=== PATIENT | female | born 1955 | race Caucasian/White ===

== ENCOUNTER 2016-07-05 12:01 | Observation (INO) | payer MEDICAID ==
[~2016-07-05] VITALS: Ht 157.5 cm; Wt 71.3 kg
[2016-07-05 12:05] VITALS: BP 144/96
[2016-07-05 12:18] LABS: HEMOGLOBIN 11.7 g/dL (12.2-16.2); LYMPH # 2.1 K/mm3 (0.7-4.5); LYMPH % 27.2 % (10-50.0)
[2016-07-05 12:44] LABS: BUN 13 mg/dL (7-18)
[2016-07-05 12:53] LABS: GFR (ESTIMATED) 64 ML/MIN (59-)
--- NOTE | 2016-07-05 13:31 | RADIOLOGY REPORT PS360 ---
CHEST(2 VIEWS-NOT PORTABLE) HISTORY: Chest pain CP WEEK LONG ORDERING PHYSICIAN: Daryl Orellana MD PATIENT AGE: 61 years COMPARISON: None available FINDINGS: Normal heart size. There is coarse calcification of the mitral valve annulus. No CHF.. The lungs are clear without infiltrates, suspicious nodules, or pleural effusions. Degenerative change thoracic spine. . 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 No acute finding. 2. Mitral valve annular calcification
--- NOTE | 2016-07-05 14:41 | CONSULT NOTE ---
Standard Demographics Patient Demo Date of Consultation: 07/05/16 Referring Provider: Lois Bob MD Reason for Consultation: Chest pain, History of CHF PRIMARY DIAGNOSIS: chest pain Problem list Problem list: 1. History of congestive heart failure 2. History of bone cancer of leg diagnosed approximately 2011 with history of chemotherapy treatment. This was performed in [place]. Possible multiple myeloma. 3. History of DVT approximately March or April 2016 treated with about 3 months of Xarelto. 4. History of anemia, recurrent 5. Tobacco use, since age 14. 6. Hypertension, treated for greater than 40 years 7. Diabetes mellitus, treated for greater than 40 years History of present illness: History of present illness: 61-year-old white female presented to her family doctor's office today for a 3 day history of upper abdominal and lower chest discomfort. Patient has nausea and shortness of breath associated with it and she denies any recent increase in lower extremity edema and denies any orthopnea. Due to the symptoms and patient being new to the office she was sent to the emergency department for further evaluation. Primary care's office contacted cardiology to see the patient in the ER for further evaluation. Patient does have a history of recurrent congestive heart failure previously treated in [place]. She relates increasing exertional chest tightness and decreased exercise tolerance over the last couple of months. She denies cardiac cath in the past but states recent stress test 03/2016 in [place], [place] was ok. She does not believe she's had an echocardiogram. Electrocardiogram in the emergency department is sinus rhythm and unremarkable. Initial troponin is normal. She reports recent of RIGHT lower extremity DVT treated with Xarelto for 3 months. She has a history of bone cancer of leg diagnosed about 4 years ago. Possible multiple myeloma. Past Medical History: General: Hypertension Yes Diabetes Yes Cancer Yes Additional hx BONE CANCER THAT HASN'T BEEN RECHECKED Past Surgical HX: Previous Surgery?N Allergies Coded Allergies: ondansetron (From ZOFRAN ( HYDROCHLORIDE)) (Mild, 07/05/16) Current Medications: Current Medications Morphine Sulfate 4 MG ONCE ONE IV (DC) Ondansetron HCl 4 MG ONCE ONE IV (DCr) Morphine Sulfate 0 .STK-MED ONE .ROUTE (DC) Sodium Chloride 10 ML PRN PRN IV Immunization HX Ped.Immunizations UTD Yes DT/Tetanus 1-4 Years Family history Family HX Family Hx Insignificant No Social Hx: Smoking HX Tobacco No Type Cigarettes Are you/the child exposed to second-hand smoke: No Alcohol Alcohol: No Hx of Drug Use Drug Use? No Review of systems: Constitutional see HPI, weakness. Respiratory SOB with excertion. Cardiovascular see HPI, chest pain Gastrointestinal/Abdominal see HPI, abdominal pain, nausea Genitourinary No: no symptoms reported. Musculoskeletal muscle pain. Neurological No: no symptoms reported. Exam: Admission Vital Signs: 1ST Vital Signs Result Date Time Pulse Ox 99 07/05 1205 B/P 144/96 07/05 1205 Temp 98.6 07/05 120 Pulse 65 07/05 1205 Resp 18 07/05 120 Last Vital Signs: Vital Signs Result Date Time Resp 07/05 1408 Pulse Ox 99 07/05 1205 B/P 144/96 07/05 1205 Temp 98.6 07/05 1205 Pulse 65 07/05 1205 Exam General appearance: alert, awake, no acute distress Neck: no carotid bruit, JVD Cardiovascular: regular rate & rhythm, extra beats Respiratory: clear to auscultation, good air movement ABD: soft Extremities: moves all, patient has 2-3+ pitting edema of lower extremities bilaterally. She has a healing sore on the LEFT lower coronado area without drainage. Neuro: alert, intact, speech clear, oriented and person place and time. Answers questions appropriately. She is a poor historian. Laboratory data: Laboratory Tests 07/05/16 120: B-Natriuretic Peptide 437 H 07/05/161204: Amylase 27, Lipase 40 L 07/05/16 120: Sodium 139, Potassium 3.5, Chloride 103, Carbon Dioxide 29, BUN 13, Creatinine 0.9, Estimated Creat Clear 77, Estimated GFR (MDRD) 64, Glucose 84, Calcium 7.9 L, Total Bilirubin 0.4, AST 21, ALT 13, Alkaline Phosphatase 153 H, Creatine Kinase 57, CK-MB (CK-2) Rel Index 2.3, CK and CKMB Interp 1.3, Troponin I < 0.02 , Total Protein 6.8, Albumin 2.0 L, Globulin 4.8 H, Albumin/Globulin Ratio 0.4 L, D-Dimer 1080 *H, WBC 7.6, RBC 3.50 L, Hgb 11.7 L, Hct 36.7 L, MCV 104.9 H, RDW 14.5, Plt Count 274, MPV 7.0 L, Gran % 64.7, Gran # 4.9, Lymphocytes % 27.2, Monocytes % 3.4, Eosinophils % 4.0, Basophils % 0.7, Lymphocytes # 2.1, Monocytes # 0.3, Eosinophils # 0.3, Basophils # 0.1, PUBS MCHC 31.8, MCH 33.4 H Plan: Assessment: 1. Chest and abdominal pain with persistent nausea for 3 days. Electrocardiogram unremarkable with normal troponin. Continue serial cardiac enzymes to rule out myocardial infarction but due to exertional angina symptoms in assisted diabetic that smokes, will proceed with cardiac cath in the morning. Risks and benefits discussed with patient and she agrees to proceed. 2. History of recent DVT status post 3 months of treatment with Xarelto. 3. Elevated d-dimer with shortness of breath. CT of the chest has been ordered to rule out PE. 4. Elevated BNP without CHF on CXR or on exam but with history of recurrent congestive heart failure. Unsure what medications patient is taking but will start diuretics due to LE edema. 5. Long-term diabetic 6. Long-term hypertensive, will obtain echocardiogram to evaluate LV function. 7. Mild anemia 8. History of bone cancer Recommendations: 1. IV Lasix 40 mg daily. 2. Obtain echocardiogram. 3. Left heart cath tomorrow. 4. ASA 81 mg daily. 5. Start low dose beta parul at 1551
--- NOTE | 2016-07-05 15:09 | Emergency Room Report ---
History of Present Illness Time Seen by [id number] Presenting Problem in Triage Pt arrived:Walked Presenting Problem:PATIENT STATES SHE IS SOA AND HAS BEEN HAVING NON-RADIATING CP FOR A WEEK HASN'T SEEN A DR SINCE FEBRUARY AND STATES THAT WAS WHEN SHE FINISHED BONE CANCER TREATMENT AND DECIDED SHE WASN'T GOING BACK. 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 N Clinical Suspician of Infection? N Mental Status: 1 - Regular (Normal Baseline) Sepsis Risk:Low Sepsis Risk Have you (or family members/close friends) recently traveled outside the [facility]? N If Yes, where/when: Have you had exposure to infectious disease within the past month? TB? Other? Specify: Source patient, RN notes reviewed, family, RN/MD Exam Limitations no limitations Comment This is 61-year-old female patient presented to the emergency room with chest pain, onset approximately one week ago gradually getting worse, today associated with exertion, relieved by rest. Patient is also short of breath, diaphoretic, stating that her chest pain is a to the LEFT shoulder, and down the LEFT arm. Apparently patient was diagnosed and treated for bone cancer of the LEFT lower extremity in [facility] 4 years ago. Patient never finished completely the treatment because she relocated to [place], where she did not continue her medical treatment either. ALLERGIES Coded Allergies: ondansetron (From ZOFRAN ( HYDROCHLORIDE)) (Mild, 07/05/16) Home Medications Reported Medications No Home Medications (NO HOME MEDICATIONS) 1 EACH XX ONCE History Medical History General Hypertension? Yes Diabetes? Yes Cancer? Yes More? Yes Additional hx: BONE CANCER THAT HASN'T BEEN RECHECKED Immunization Hx Ped.Immunizations UTD Yes DT/Tetanus 1-4 Years Ago Surgical Hx Previous Surgery?N Social History Smoking Hx Smoker: Current Every Day Smoker Tobacco: No Type Cigarettes Are you/the child exposed to second-hand smoke: No Alcohol Alcohol: No Review of Systems All Other Systems Reviewed and Negative Respiratory shortness of breath Cardiovascular chest pain, palpitations Physical Exam Vital Signs Vital Signs Date Time Temp Pulse Resp B/P Pulse O2 O2 Flow FiO2 Ox Delivery Rate 07/05 1642 65 18 147/75 98 07/05 1549 2 07/05 1549 2 07/05 1549 2 07/05 1506 67 18 152/89 99 07/05 1408 18 07/05 1205 98.6 65 18 144/96 99 General Appearance normal appearance, WD/WN, mild distress Neck normal inspection, non-tender, supple, full range of motion Respiratory Status Yes: trachea midline, chest symmetrical, non tender chest. No: respiratory distress. Lung Sounds bilateral: normal breath sounds, lungs clear. Cardiovascular normal exam, regular rate/rhythm, no peripheral edema, no gallop, no JVD, no murmur, no rub, normal peripheral pulses Peripheral Pulses Pulses normal Yes Gastrointestinal normal bowel sounds, normal exam, non tender, soft, no organomegaly Extremities non-tender, normal range of motion, normal inspection Neurologic alert, continuity clerk II-XII nml as tested, normal exam, oriented x 3 Mental status normal mood/affect Skin intact, normal color, warm/dry Medical Decision Making LABS/Meds/Orders Pt receiving controlled substance in ED? No Comment 14:15-discussed with Dr. Jason Grey's nurse practitioner, taking calls for him till 5pm, advised of patient's history, presentation, findings, ED course. Matilda accepted patient on behalf of Dr. Gomez, who she'll notify to see patient in the hospital. Also advised Matilda that I will consult cardiology on the case. At time of her admission patient was in stable medical condition, minimally symptomatic. 1430-case discussed with Ruddy Farmer, c/o Dr Degroot, who recommended patient to be admitted and have additional inpatient workup Results/Orders Laboratory Tests 07/05/16 1642: Creatine Kinase 48, CK-MB (CK-2) Rel Index 3.1, CK and CKMB Interp 1.5, Troponin I 0.02 07/05/16 1205: B-Natriuretic Peptide 437 H 07/05/16 1205: Amylase 27, Lipase 40 L 07/05/16 1205: Sodium 139, Potassium 3.5, Chloride 103, Carbon Dioxide 29, BUN 13, Creatinine 0.9, Estimated Creat Clear 77, Estimated GFR (MDRD) 64, Glucose 84, Calcium 7.9 L, Total Bilirubin 0.4, AST 21, ALT 13, Alkaline Phosphatase 153 H, Creatine Kinase 57, CK-MB (CK-2) Rel Index 2.3, CK and CKMB Interp 1.3, Troponin I < 0.02 , Total Protein 6.8, Albumin 2.0 L, Globulin 4.8 H, Albumin/Globulin Ratio 0.4 L, D-Dimer 1080 *H, WBC 7.6, RBC 3.50 L, Hgb 11.7 L, Hct 36.7 L, MCV 104.9 H, RDW 14.5, Plt Count 274, MPV 7.0 L, Gran % 64.7, Gran # 4.9, Lymphocytes % 27.2, Monocytes % 3.4, Eosinophils % 4.0, Basophils % 0.7, Lymphocytes # 2.1, Monocytes # 0.3, Eosinophils # 0.3, Basophils # 0.1, PUBS MCHC 31.8, MCH 33.4 H Current Medication Orders Sig/Colton Start time Last Medication Dose Route Stop Time Status Admin Fentanyl Citrate 25 MCG PRN PRN 07/06 1600 AC IV 07/06 2300 Fentanyl Citrate 50 MCG PRN PRN 07/06 1600 AC IV 07/06 2300 Flumazenil 0.2 MG PRN PRN 07/06 1600 AC IV 07/06 2300 Heparin Sodium/ 3,000 UNITS PRN PRN 07/06 1600 AC Sodium Chloride IV 07/07 1547 Midazolam HCl 1 MG PRN PRN 07/06 1600 AC IV 07/06 2300 Midazolam HCl 1 MG PRN PRN 07/06 1600 AC IV 07/06 2300 Naloxone HCl 0.4 MG [id number] PRN 07/06 1600 AC IV 07/06 2300 Nitroglycerin 800 MCG PRN PRN 07/06 1600 AC IV 07/07 1547 Verapamil HCl 5 MG PRN PRN 07/06 1600 AC IV 07/07 1547 Lidocaine HCl 20 ML ONCE ONE 07/06 0800 AC IJ 07/06 0801 Metoprolol Tartrate 25 MG BID 07/05 2100 AC 07/05 PO 2051 Multi-Ingredient GI 0 .STK-MED ONE 07/05 1631 DC Drug PO Influenza Virus 0.5 ML PRN PRN 07/05 1530 AC Vaccine Quadrival IM Nicotine 21 MG DAILYP PRN 07/05 1530 AC 07/05 TD 2213 Multi-Ingredient GI 60 ML ONCE ONE 07/05 1515 DC Drug PO 07/05 1516 Iopamidol 75 ML ONCE ONE 07/05 1500 DC 07/05 IV 07/05 1501 1500 Sodium Chloride 10 ML PRN PRN 07/05 1500 DC 07/05 IV 07/05 1629 1500 Sodium Chloride 20 ML ONCE ONE 07/05 1500 DC 07/05 IV 07/05 1501 1500 Sodium Chloride 20 ML ONCE ONE 07/05 1500 DC 07/05 IV 07/05 1501 1500 Furosemide 40 MG ONCE ONE 07/05 1445 DC IV 07/05 1446 Lisinopril 20 MG DAILY 07/05 1438 AC PO Morphine Sulfate 4 MG ONCE ONE 07/05 1415 DC 07/05 IV 07/05 1416 1408 Ondansetron HCl 4 MG ONCE ONE 07/05 1415 DCr IV 07/05 1416 Morphine Sulfate 0 .STK-MED ONE 07/05 1403 DC .ROUTE Sodium Chloride 10 ML PRN PRN 07/05 1215 AC IV 07/06 1203 Orders Procedure Date/time Status Schedule Procedure 07/06 UNK Active PREPARE CONSENT 07/06 UNK Active [id number] FAT/LO CHO/NOHEMI 07/05 D Active CARDIAC ENZYMES 07/05 2200 Complete CARDIAC ENZYMES 07/05 1600 Complete RT Pulse Oximetry, Provide 07/05 1548 Active RT O2 Installation/Change Set 07/05 1548 Active RT O2 Therapy, Monitor/Maintai 07/05 1548 Active Decision to admit 07/[address] CHEST W/PE PROTOCOL REQ 07/05 1350 Complete D-DIMER 07/05 1254 Complete BRAIN NATRIURETIC PEPTIDE 07/05 1254 Complete LIPASE 07/05 1251 Complete AMYLASE 07/05 1251 Complete ELECTROCARDIOGRAM REQUEST 07/05 1204 Active IV SALINE LOCK 07/05 1204 Active CBC WITH AUTO DIFF 07/05 1204 Complete CARDIAC ENZYMES 07/05 1204 Complete CHEM 12 PROFILE 07/05 1204 Complete ADMIT PATIENT 07/05 UNK Active 12 LEAD EKG-BESSON (INITIAL) 07/05 UNK Active PULSE OXIMETRY REQUEST 07/05 UNK Active OXYGEN REQUEST 07/05 UNK Active VITAL SIGNS 07/05 UNK Active RED HAT LINUX ENGINEER 07/05 UNK Active POM NURSE RICK HOSE ORDER 07/05 UNK Active CODE STATUS 07/05 UNK Active PATIENT ACTIVITY ORDER 07/05 UNK Active Weight, Monitor as ordered/ind 07/05 UNK Complete PHYSICIANS CONSULT 07/05 UNK Active SPECIALTY CLINIC PHYS CONSULT 07/05 [facility] Active CM/EKG CM/piggyback clerk Rhythm Normal Sinus Rhythm Rate 85 Ectopy No Comments No acute ischemic changes EKG rate, NSR, rhythm, no evid. of ischemic chgs, no ectopy, normal QRS, normal DE, no EKG for comparison, non-spec. ST/Twave chgs, ST elevation, ST depression, LBBB, RBBB, ectopy, abnormal Q waves XRAY/CT/US XRAY/CT/US 1 XRAY chest XR interpretation by discussed w/radiologist Xray Results no infiltrates, normal heart size, normal lung inflation sheila XRAY/CT/US [address] interpretation by discussed w/radiologist CT Results see the radiologist's report Departure Departure Time of Disposition 1509 Disposition Still a Patient Clinical Impression Primary Impression: Chest pain Qualifiers: Chest pain type: unspecified Qualified Code: R07.9 - Chest pain, unspecified Condition STABLE ED Critical Care Critical Care No at 0703
--- NOTE | 2016-07-05 15:09 | Emergency Room Report ---
History of Present Illness Time Seen by [id number] Presenting Problem in Triage Pt arrived:Walked Presenting Problem:PATIENT STATES SHE IS SOA AND HAS BEEN HAVING NON-RADIATING CP FOR A WEEK HASN'T SEEN A DR SINCE FEBRUARY AND STATES THAT WAS WHEN SHE FINISHED BONE CANCER TREATMENT AND DECIDED SHE WASN'T GOING BACK. 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 N Clinical Suspician of Infection? N Mental Status: 1 - Regular (Normal Baseline) Sepsis Risk:Low Sepsis Risk Have you (or family members/close friends) recently traveled outside the [facility]? N If Yes, where/when: Have you had exposure to infectious disease within the past month? TB? Other? Specify: Source patient, RN notes reviewed, family, RN/MD Exam Limitations no limitations Comment This is 61-year-old female patient presented to the emergency room with chest pain, onset approximately one week ago gradually getting worse, today associated with exertion, relieved by rest. Patient is also short of breath, diaphoretic, stating that her chest pain is a to the LEFT shoulder, and down the LEFT arm. Apparently patient was diagnosed and treated for bone cancer of the LEFT lower extremity in [facility] 4 years ago. Patient never finished completely the treatment because she relocated to [place], where she did not continue her medical treatment either. ALLERGIES Coded Allergies: ondansetron (From ZOFRAN ( HYDROCHLORIDE)) (Mild, 07/05/16) Home Medications Reported Medications No Home Medications (NO HOME MEDICATIONS) 1 EACH XX ONCE History Medical History General Hypertension? Yes Diabetes? Yes Cancer? Yes More? Yes Additional hx: BONE CANCER THAT HASN'T BEEN RECHECKED Immunization Hx Ped.Immunizations UTD Yes DT/Tetanus 1-4 Years Ago Surgical Hx Previous Surgery?N Social History Smoking Hx Smoker: Current Every Day Smoker Tobacco: No Type Cigarettes Are you/the child exposed to second-hand smoke: No Alcohol Alcohol: No Review of Systems All Other Systems Reviewed and Negative Respiratory shortness of breath Cardiovascular chest pain, palpitations Physical Exam Vital Signs Vital Signs Date Time Temp Pulse Resp B/P Pulse O2 O2 Flow FiO2 Ox Delivery Rate 07/05 1642 65 18 147/75 98 07/05 1549 2 07/05 1549 2 07/05 1549 2 07/05 1506 67 18 152/89 99 07/05 1408 18 07/05 1205 98.6 65 18 144/96 99 General Appearance normal appearance, WD/WN, mild distress Neck normal inspection, non-tender, supple, full range of motion Respiratory Status Yes: trachea midline, chest symmetrical, non tender chest. No: respiratory distress. Lung Sounds bilateral: normal breath sounds, lungs clear. 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 No Comment 14:15-discussed with Dr. Jason Grey's nurse practitioner, taking calls for him till 5pm, advised of patient's history, presentation, findings, ED course. Matilda accepted patient on behalf of Dr. Gomez, who she'll notify to see patient in the hospital. Also advised Matilda that I will consult cardiology on the case. At time of her admission patient was in stable medical condition, minimally symptomatic. 1430-case discussed with Ruddy Farmer, c/o Dr Degroot, who recommended patient to be admitted and have additional inpatient workup Results/Orders Laboratory Tests 07/05/16 1642: Creatine Kinase 48, CK-MB (CK-2) Rel Index 3.1, CK and CKMB Interp 1.5, Troponin I 0.02 07/05/16 1205: B-Natriuretic Peptide 437 H 07/05/16 1205: Amylase 27, Lipase 40 L 07/05/16 1205: Sodium 139, Potassium 3.5, Chloride 103, Carbon Dioxide 29, BUN 13, Creatinine 0.9, Estimated Creat Clear 77, Estimated GFR (MDRD) 64, Glucose 84, Calcium 7.9 L, Total Bilirubin 0.4, AST 21, ALT 13, Alkaline Phosphatase 153 H, Creatine Kinase 57, CK-MB (CK-2) Rel Index 2.3, CK and CKMB Interp 1.3, Troponin I < 0.02 , Total Protein 6.8, Albumin 2.0 L, Globulin 4.8 H, Albumin/Globulin Ratio 0.4 L, D-Dimer 1080 *H, WBC 7.6, RBC 3.50 L, Hgb 11.7 L, Hct 36.7 L, MCV 104.9 H, RDW 14.5, Plt Count 274, MPV 7.0 L, Gran % 64.7, Gran # 4.9, Lymphocytes % 27.2, Monocytes % 3.4, Eosinophils % 4.0, Basophils % 0.7, Lymphocytes # 2.1, Monocytes # 0.3, Eosinophils # 0.3, Basophils # 0.1, PUBS MCHC 31.8, MCH 33.4 H Current Medication Orders Sig/Colton Start time Last Medication Dose Route Stop Time Status Admin Fentanyl Citrate 25 MCG PRN PRN 07/06 1600 AC IV 07/06 2300 Fentanyl Citrate 50 MCG PRN PRN 07/06 1600 AC IV 07/06 2300 Flumazenil 0.2 MG PRN PRN 07/06 1600 AC IV 07/06 2300 Heparin Sodium/ 3,000 UNITS PRN PRN 07/06 1600 AC Sodium Chloride IV 07/07 1547 Midazolam HCl 1 MG PRN PRN 07/06 1600 AC IV 07/06 2300 Midazolam HCl 1 MG PRN PRN 07/06 1600 AC IV 07/06 2300 Naloxone HCl 0.4 MG [id number] PRN 07/06 1600 AC IV 07/06 2300 Nitroglycerin 800 MCG PRN PRN 07/06 1600 AC IV 07/07 1547 Verapamil HCl 5 MG PRN PRN 07/06 1600 AC IV 07/07 1547 Lidocaine HCl 20 ML ONCE ONE 07/06 0800 AC IJ 07/06 0801 Metoprolol Tartrate 25 MG BID 07/05 2100 AC 07/05 PO 2051 Multi-Ingredient GI 0 .STK-MED ONE 07/05 1631 DC Drug PO Influenza Virus 0.5 ML PRN PRN 07/05 1530 AC Vaccine Quadrival IM Nicotine 21 MG DAILYP PRN 07/05 1530 AC 07/05 TD 2213 Multi-Ingredient GI 60 ML ONCE ONE 07/05 1515 DC Drug PO 07/05 1516 Iopamidol 75 ML ONCE ONE 07/05 1500 DC 07/05 IV 07/05 1501 1500 Sodium Chloride 10 ML PRN PRN 07/05 1500 DC 07/05 IV 07/05 1629 1500 Sodium Chloride 20 ML ONCE ONE 07/05 1500 DC 07/05 IV 07/05 1501 1500 Sodium Chloride 20 ML ONCE ONE 07/05 1500 DC 07/05 IV 07/05 1501 1500 Furosemide 40 MG ONCE ONE 07/05 1445 DC IV 07/05 1446 Lisinopril 20 MG DAILY 07/05 1438 AC PO Morphine Sulfate 4 MG ONCE ONE 07/05 1415 DC 07/05 IV 07/05 1416 1408 Ondansetron HCl 4 MG ONCE ONE 07/05 1415 DCr IV 07/05 1416 Morphine Sulfate 0 .STK-MED ONE 07/05 1403 DC .ROUTE Sodium Chloride 10 ML PRN PRN 07/05 1215 AC IV 07/06 1203 Orders Procedure Date/time Status Schedule Procedure 07/06 UNK Active PREPARE CONSENT 07/06 UNK Active [id number] FAT/LO CHO/NOHEMI 07/05 D Active CARDIAC ENZYMES 07/05 2200 Complete CARDIAC ENZYMES 07/05 1600 Complete RT Pulse Oximetry, Provide 07/05 1548 Active RT O2 Installation/Change Set 07/05 1548 Active RT O2 Therapy, Monitor/Maintai 07/05 1548 Active Decision to admit 07/[address] CHEST W/PE PROTOCOL REQ 07/05 1350 Complete D-DIMER 07/05 1254 Complete BRAIN NATRIURETIC PEPTIDE 07/05 1254 Complete LIPASE 07/05 1251 Complete AMYLASE 07/05 1251 Complete ELECTROCARDIOGRAM REQUEST 07/05 1204 Active IV SALINE LOCK 07/05 1204 Active CBC WITH AUTO DIFF 07/05 1204 Complete CARDIAC ENZYMES 07/05 1204 Complete CHEM 12 PROFILE 07/05 1204 Complete ADMIT PATIENT 07/05 UNK Active 12 LEAD EKG-BESSON (INITIAL) 07/05 UNK Active PULSE OXIMETRY REQUEST 07/05 UNK Active OXYGEN REQUEST 07/05 UNK Active VITAL SIGNS 07/05 UNK Active NUMERICAL CONTROL LATHE OPERATOR 07/05 UNK Active POM NURSE RICK HOSE ORDER 07/05 UNK Active CODE STATUS 07/05 UNK Active PATIENT ACTIVITY ORDER 07/05 UNK Active Weight, Monitor as ordered/ind 07/05 UNK Complete PHYSICIANS CONSULT 07/05 UNK Active [facility]TY [facility] PHYS CONSULT 07/05 [facility] Active CM/EKG CM/clinical asst Rhythm Normal Sinus Rhythm Rate 85 Ectopy No Comments No acute ischemic changes EKG rate, NSR, rhythm, no evid. of ischemic chgs, no ectopy, normal QRS, normal SC, no EKG for comparison, non-spec. ST/Twave chgs, ST elevation, ST depression, LBBB, RBBB, ectopy, abnormal Q waves XRAY/CT/US XRAY/CT/US 1 XRAY chest XR interpretation by discussed w/radiologist Xray Results no infiltrates, normal heart size, normal lung inflation sheila XRAY/CT/US [address] interpretation by discussed w/radiologist CT Results see the radiologist's report Departure Departure Time of Disposition 1509 Disposition Still a Patient Clinical Impression Primary Impression: Chest pain Qualifiers: Chest pain type: unspecified Qualified Code: R07.9 - Chest pain, unspecified Condition STABLE ED Critical Care Critical Care No at 0703
--- NOTE | 2016-07-05 15:26 | RADIOLOGY REPORT PS360 ---
CTA-CHEST HISTORY: CHEST PAIN, DYSPNEA ORDERING PHYSICIAN: Daryl Orellana MD PATIENT AGE: 61 years TECHNIQUE: Helical acquisition obtained following the bolus administration of 60 mL of Isovue 370 followed by a saline bolus. Axial, sagittal, and coronal reformatted images are generated and reviewed. COMPARISON: None FINDINGS: No evidence of pulmonary embolus, aortic aneurysm, or aortic dissection. Atherosclerotic changes involving the aortic arch. There is severe atherosclerotic calcification of the LAD and calcification of the mitral valve annulus. No mediastinal or hilar mass is evident. Scattered small nodes are present in the mediastinum. There is evidence of old granulomatous disease with multiple calcified granulomas. 3 mm noncalcified nodules present in the right upper lobe posteriorly. The apices are not imaged. Fibrotic changes are present in the left lung base. No effusions. Multilevel degenerative disc disease noted in the thoracic spine. Upper abdominal images show mild dilatation of the intra and extrahepatic biliary radicals. There is increased soft tissue density of the stomach with suggestion of thickening of the gastric wall. Patient has had prior gastric bypass surgery which may account for some of this finding. Upper endoscopy or upper GI. CT abdomen with IV and oral contrast may be of further value. Please correlate clinically. There are no previous exams available for comparison. IMPRESSION: 1. No evidence of pulmonary embolus or aortic aneurysm or dissection. 2. Atherosclerotic vascular disease of the aortic arch and coronary arteries. 3. Old granulomatous disease. 4. Prior gastric bypass surgery with gastric wall thickening versus nondistention. PULMONARY ARTERIES:No pulmonary embolus evident. AORTA:No acute finding. No thoracic aortic aneurysm or dissection evident LUNGS:Unremarkable. No mass or consolidation. PLEURAL SPACES:No significant effusion. No evidence of pneumothorax. HEART:Unremarkable. Normal heart size. No significant pericardial effusion. MEDIASTINAL AND HILAR STRUCTURES:No mediastinal or hilar mass evident. No dominant adenopathy. BONY STRUCTURES:No acute bony abnormalities apparent LYMPH NODES:No enlarged lymph nodes evident UPPER ABDOMEN:Unremarkable IMPRESSION:
--- NOTE | 2016-07-05 15:42 | PHARMACY CLINIC NOTE ---
Patient Demographics Patient Demographics Admission date: 07/05/16 Date: 07/05/16 Time: 1541 Allergies Coded Allergies: ondansetron (From ZOFRAN ( HYDROCHLORIDE)) (Mild, 07/05/16) HEIGHT- FT: 5 IN: 2.00 K.029 VTE General Information Labs: Laboratory Tests 07/05 1205 Hematology Hgb (12.2 - 16.2 g/dL) 11.7 L Hct (37.0 - 47.0 %) 36.7 L Plt Count (142 - 424 K/mm3) 274 Disclaimer The following section includes nursing documentation that has been pulled in for pharmacy review. VTE prophylaxis NQF [id number] VTE prophylaxis ordered? Yes Type of prophylaxis/treatment: RICK at 4835
--- NOTE | 2016-07-05 17:12 | RADIOLOGY REPORT PS360 ---
PROCEDURE: 2-D M-mode and color Doppler study INDICATIONS FOR THE TEST: Chest pain+ COPD+ Heart Murmur Tobacco Smoking+ Palpitations Fatigue Syncope+ Edema Hypertension Diabetes Mellitus+ Rheumatic Fever SOB+CARRERA+Obesity+Hyperlipidemia Family History HD Additional History CVA 1994 PATIENT INFORMATION HEIGHT: 62 WEIGHT: 161 GENDER: Female B/P: 2-D/M-MODE INTERPRETATION: 2-D MEASUREMENTS OBSERVED VALUES IN CMS Right Ventricular Dimension (RVDd) 2.2 Interventricular Septum (Thickness)(IVsd) 1.2 Left Ventricular Internal Dimensions(LVIDd) 3.2 Left Ventricular Posterior Wall (Thickness)(LVPWd) 1.2 Aortic Root 2.4 Aortic Cusp Separation 2.3 Left Atrial Dimensions (LAD) 5.0 2D 1. Left atrium is markedly enlarged, left ventricle is normal size, there is mild concentric left ventricular hypertrophy, visually estimated ejection fraction of 55% with no obvious regional wall motion abnormality, endocardial surface of poorly visualized. 2. The right atrium is mildly enlarged, right ventricle is mildly dilated with normal contractility. 3. The aortic valve is thickened and calcified leaflet, display good mobility there is no aortic stenosis. 4. The mitral valve has dense mitral annular calcification which extends and both anterior and posterior mitral leaflet. 5. The tricuspid valve leaflets are minimally thickened. 6. The pulmonic valve is not well visualized. 7. No significant pericardial effusion noted. DOPPLER INTERROGATION: 1. The aortic outflow velocities within normal range, there is no aortic stenosis, there is trace aortic insufficiency present. 2. The mitral inflow velocity is within normal range, this excludes presence of any significant mitral inflow obstruction or stenosis, there is mild mitral regurgitation. 3. There is mild tricuspid regurgitation present, calculated right ventricular systolic pressure is 35 mmHg. 4. Grade 1 diastolic dysfunction seen with tissue Doppler evidence of raised left atrial pressure. CONCLUSION: 1. Biatrial enlargement, normal left ventricular size, mild concentric left ventricular hypertrophy present, visually estimated ejection fraction 55%, with no obvious regional wall motion abnormality, endocardial surface of poorly visualized. Grade 1 diastolic dysfunction seen with tissue Doppler evidence of raised left atrial pressure. 2. Dense mitral calcification, without any significant mitral inflow obstruction, there is mild mitral regurgitation seen. 3. Mild tricuspid regurgitation calculated right ventricular systolic pressure 35 mmHg. 4. No significant pericardial effusion noted.
[2016-07-05 18:35] VITALS: BP 120/57
[2016-07-05 19:00] VITALS: BP 114/57
[2016-07-05 19:50] VITALS: BP 114/57
[2016-07-05 21:47] VITALS: BP 114/57
[2016-07-05] MEDS ORDERED: NOMEDS XX (22:07)
[2016-07-06] VITALS (9 sets, daily range): BP systolic 91–150; BP diastolic 43–76
--- NOTE | 2016-07-06 10:00 | RADIOLOGY REPORT PS360 ---
CARDIAC CATHETERIZATION DATE OF CATHETERIZATION:07/06/2016 8:55 AM PROCEDURES: 1. Left heart catheterization 2. Left ventriculogram 3. Selective coronary angiogram INDICATION FOR TEST: 1. Greater than 45 years of diabetes mellitus 2. Angina pectoris 3. High pretest likelihood for coronary artery disease Informed consent was obtained prior to the procedure. COMPLICATIONS: None ESTIMATED BLOOD LOSS: Less than 10 ml. TECHNIQUE: One percent lidocaine was used to anesthetize the right groin. The right femoral artery was accessed via the Seldinger technique. A 4-Sammarinese sheath was placed in the right femoral artery. The JL-4 and JR-4 catheter was also used to perform left heart catheterization and left ventriculography. At the end of the procedure the patient was transferred to the post-op holding area in stable condition for arterial sheath removal. ANGIOGRAPHIC RESULTS: 1. The left main artery normal 2. The left anterior descending artery is a relatively small artery. Proximal to the first septal aircraft tool maker there is a concentric 50-60% stenosis where the vessel is approximately 2.25 mm in diameter. Distal to the stenosis the LAD is 2 mm and tapers to less than 1 mm beyond the midpoint of the vessel as it approaches the apex. 3. The circumflex artery gives rise to a ramus intermedius which is normal while the true circumflex artery has mild luminal irregularities of 10% 4. The right coronary artery is a dominant vessel and has proximal concentric 20% stenosis with mid vessel 20% stenoses while the very large posterior descending artery has a proximal 30% stenosis. 5. The DAN ventriculogram reveals normal ejection fraction 65% 6. The left ventricular end-diastolic pressure 10 mmHg IMPRESSION: 1. Angiographically moderate to severe disease in the proximal LAD just prior to a tortuous relatively small caliber LAD. The LAD is abnormally small however it still is a large enough vessel to the stent. I doubt that this point this stenosis is producing angina and would recommend antianginal medications. 2. If patient continues to have recalcitrant angina despite maximal medical therapy we can either perform a Lexiscan Myoview to see if this lesion is ischemia producing or possibly repeat heart catheter and perform FFR. A 2.25 x 12 mm stent could easily be placed in this vessel but given her diabetes I would like to try medical management as long as possible. 3. LDL less than 70 4. I doubt this stenosis is producing a significant amount of angina at this time 5. Because of her diabetes or would recommend surveillance stress testing at a minimum of every 3 years. 6. Normal ejection fraction 7. Normal left ventricular end-diastolic pressure PLAN: 1. See above impression 2. LDL less than 70 3. Maximize medical management
--- NOTE | 2016-07-06 13:13 | HISTORY AND PHYSICAL REPORT ---
Demographics: Admit date: 07/05/16 Chief complaint: chest pain PRIMARY DIAGNOSIS: ANGINA/SOA Allergies: Coded Allergies: ondansetron (From ZOFRAN ( HYDROCHLORIDE)) (Mild, 07/05/16) History of present illness: History of present illness: 61-year-old white female presented to her family doctor's office today for a 3 day history of upper abdominal and lower chest discomfort. Patient has nausea and shortness of breath associated with it and she denies any recent increase in lower extremity edema and denies any orthopnea. Due to the symptoms and patient being new to the office she was sent to the emergency department for further evaluation. Primary care's office contacted cardiology to see the patient in the ER for further evaluation. Patient does have a history of recurrent congestive heart failure previously treated in [place]. She relates increasing exertional chest tightness and decreased exercise tolerance over the last couple of months. She denies cardiac cath in the past but states recent stress test 03/2016 in [place], [place] was ok. She does not believe she's had an echocardiogram. Electrocardiogram in the emergency department is sinus rhythm and unremarkable. Initial troponin is normal. She reports recent of RIGHT lower extremity DVT treated with Xarelto for 3 months. She has a history of bone cancer of leg diagnosed about 4 years ago. Possible multiple myeloma. Past medical history: Immunization HX Ped.Immunizations UTD Yes DT/Tetanus 1-4 Years Ago Flu 2015-FSN Pneumonia Received In Past TB Test in last year No General Angina: No MT: No Hypertension? Yes Hyperlipidemia? No CHF? No COPD? No Asthma? No Hernia? No CVA? No Seizures? No Diabetes? Yes Insulin Dependent: No Home FSBS? No UTI? No Stones? No GB Disease: No Hepatitis? No Cataracts? No Glaucoma? No MRSA? No TB? No Cancer? Yes Site: BONE More? Yes Additional hx: BONE CANCER THAT HASN'T BEEN RECHECKED Past Surgical HX Previous Surgery?gastric bypass, Current home meds: Reported Medications No Home Medications (NO HOME MEDICATIONS) 1 EACH XX ONCE Social Hx: Smoking HX Tobacco Yes Type Cigarettes Packs/day 1 1/2 - 2 PACKS Are you/the child exposed to second-hand smoke: No Alcohol Alcohol: No Hx of Drug Use Drug Use? No Review of systems: Constitutional No: no symptoms reported. Respiratory see HPI, shortness of breath. Cardiovascular see HPI, chest pain, edema Gastrointestinal/Abdominal abdominal pain, nausea Genitourinary No: no symptoms reported. Musculoskeletal joint pain. Skin No: no symptoms reported. Neurological Yes: weakness. Psychiatric No: no symptoms reported. Exam: Lab data for last 24 hours: Laboratory Tests 07/05/16 2235: Creatine Kinase 26, CK-MB (CK-2) Rel Index 3.5, CK and CKMB Interp 0.9, Troponin I 0.02 07/05/16 1642: Creatine Kinase 48, CK-MB (CK-2) Rel Index 3.1, CK and CKMB Interp 1.5, Troponin I 0.02 Admission vital signs: 1ST Vital Signs Result Date Time Pulse Ox 99 07/05 1205 B/P 144/96 07/05 1205 Temp 98.6 07/05 1205 Pulse 65 07/05 1205 Resp 18 07/05 1205 O2 Flow Rate 2 07/05 1549 O2 Delivery ROOM AIR 07/05 1835 Exam General appearance: normal appearance, no acute distress, pale Eyes: normal exam ENT: normal exam Neck: normal inspection Cardiovascular: normal exam, regular rate & rhythm, edema Respiratory: normal exam ABD: normal exam, normal bowel sounds, soft Genitourinary: normal voiding & quantity Extremities: normal exam, edema, 4x4 black area on left lower leg Musculoskeletal: normal exam Skin: normal exam, warm, pale Neuro: normal exam, alert, intact, oriented Plan: Problem List 1. Chest pain 2. Edema 3. Abdominal pain Plan: heart cath today, ct abd/pelvis, ct c psine- hx of bone ca. poss dc home tomorrow, rounded with varghese at 1312
--- NOTE | 2016-07-06 13:23 | CARDIOVASCULAR REPORT ---
"Venous Exam Indications: 729.5 Pain in limb. Elevated D Dimer IMPRESSIONS 1. There is no evidence of significant Reflux. 2. No evidence of deep or superficial vein thrombosis involving the right lower extremity 3. No evidence of deep or superficial vein thrombosis involving the left lower extremity Complete lower extremity venous duplex evaluation. Doppler flow study including spectral analysis, color and amos scale imaging. Tables: Venous flow and imaging: + +-------+ + |Location |Overall|Flow properties | + +-------+ + |Right common femoral |Patent |Normal phasicity; spontaneous; | | | |normal augmentation; compressible| + +-------+ + |Right saphenofemoral junction|Patent |Compressible | + +-------+ + |Right profunda femoral |Patent |Compressible | + +-------+ + |Right femoral |Patent |Normal phasicity; spontaneous; | | | |normal augmentation; | | | |compressible; no reflux | + +-------+ + |Right greater saphenous |Patent |Normal phasicity; spontaneous; | | | |normal augmentation; compressible| + +-------+ + |Right popliteal |Patent |Normal phasicity; spontaneous; | | | |normal augmentation; compressible| + +-------+ + |Right posterior tibial |Patent |Compressible | + +-------+ + |Right peroneal |Patent |Compressible | + +-------+ + |Right gastrocnemius |Patent |Compressible | + +-------+ + |Right soleal |Patent |Compressible | + +-------+ + |Left common femoral |Patent |Normal phasicity; spontaneous; | | | |normal augmentation; compressible| + +-------+ + |Left saphenofemoral junction |Patent |Compressible | + +-------+ + |Left profunda femoral |Patent |Compressible | + +-------+ + |Left femoral |Patent |Normal phasicity; spontaneous; | | | |normal augmentation; compressible| + +-------+ + |Left greater saphenous |Patent |Normal phasicity; spontaneous; | | | |normal augmentation; compressible| + +-------+ + |Left popliteal |Patent |Normal phasicity; spontaneous; | | | |normal augmentation; compressible| + +-------+ + |Left posterior tibial |Patent |Compressible | + +-------+ + |Left peroneal |Patent |Compressible | + +-------+ + |Left gastrocnemius |Patent |Compressible | + +-------+ + |Left soleal |Patent |Compressible | + +-------+ + (Report amended ) Electronically signed by: Haile Ham [id number]"
--- NOTE | 2016-07-06 15:38 | RADIOLOGY REPORT PS360 ---
CT ABD PELVIS W/O CONTRAST ORDERING PHYSICIAN : Mauro Bob MD PATIENT AGE: 61 years GENDER: Female INDICATION: ABD PAIN, CERVICAL SPINE PAIN, HX OF BONE CANCER TECHNIQUE: Helical CT scanning performed through the abdomen and pelvis. No oral nor IV contrast utilized today. There is evidence of lingering contrast from yesterday CTA chest COMPARISON: CTA chest from 07/05/2016 FINDINGS Lower thorax when compared to yesterday's CTA there is increased airspace disease seen at the posterior sulcus and lower lobes bilaterally. The left greater than right. Most likely this reflects atelectasis but difficult to exclude associated infiltrate particularly at the left base. Mild airway thickening may reflect mild inflammation here as well. Small pleural effusions also now evident. Again findings more evident at the partially imaged left lung base than right. Abdomen. Lack of oral and IV contrast decreases sensitivity. Pelvis. Small postmenopausal uterus. There is minimal fluid at cul-de-sac. The Most likely reflecting free fluid. Unlikely posterior position cystic left ovary..Consider pelvic ultrasound particular pelvic symptoms. Bladder distended and filled with contrast from yesterday's CT There is mild diffuse edema in the soft tissues which could reflect edematous state / hyperproteinemia or possibly reflects CHF if present . Small umbilical hernia contains only fat and drapes inferiorly towards umbilicus. Stomach. Previous gastric bypass.... As reported on yesterday CTA this distorted postsurgical stomach appears to have diffuse wall thickening. Consider EGD UGI to further evaluate. CT with abundant oral contrast could also be of some benefit but still difficult to evaluate the postsurgical stomach with radiology The small bowel appears normal. Large bowel: Moderate Gas and stool throughout the left and transverse colon stool because more evident at transverse colon. Minimal stool right colon with mild wall thickening right colon which may reflect lack of distention & less likely mild colitis. Liver. Previous cholecystectomy with prominent common duct and mildly dilated central intrahepatic biliary ducts-most likely reflecting postcholecystectomy changes. Pancreas not well viewed on this noncontrast study but unremarkable. Spleen modest size unremarkable. Kidneys. Contrast present within the collecting systems from yesterday CT. Generous caliber ureters bilaterally appear to merely reflect extrinsic compression from crossing iliac vessels. No significant obstructive uropathy. Mild stranding about both kidneys most likely reflecting chronic changes. Nearly 2.8 x 2 cm exophytic overlying lateral aspect left kidney Lumbar spine. Grade 1 degenerative spondylolisthesis L5 on S1, due mainly to the exuberant degenerative facet changes, along with the degenerative disc changes this level. Multilevel degenerative disc changes seen at other levels Regarding history of bone cancer. No focal bone lesions are identified . -- IMPRESSION 1. previous gastric bypass surgery yields distortedstomach with thickened wall appearance. Thickened appearing gastric wall could reflect postsurgical changes & lack of distention, but cannot exclude other processes. 2. Suggestion of mild diffuse edematous state. Edema throughout subcutaneous and soft tissues 3.. Minimal fluid in cul-de-sac. Possibly related to such? I see no focal area of bowel inflammation except possibly the thickened appearing stomach.. Requires clinical correlation 4. Dilated intrahepatic biliary ducts. Most likely reflecting previous cholecystectomy. Once correlation was serum bilirubin and LFTs. 5.. Patient is developed bibasilar airspace disease since yesterday CTA chest.-Mainly atelectasis likely due to hypoventilation, but cannot exclude early infiltrate left base. Suggestion developing Small bilateral pleural effusions bilateral 5. Generous wall thickness throughout right colon, may merely reflect lack of distention but cannot exclude colitis particularly towards cecum region. . 6. Other minor observations in text
--- NOTE | 2016-07-06 15:57 | RADIOLOGY REPORT PS360 ---
CT CERVICAL SPINE W/O CONT ORDERING PHYSICIAN : Mauro Bob MD PATIENT AGE: 61 years GENDER: Female INDICATION: ABD PAIN, CERVICAL SPINE PAIN, HX OF BONE CANCER TECHNIQUE: Helical CT scanning performed to the cervical spine with sagittal and coronal reconstructions on CT workstation. COMPARISON: None FINDINGS The cervical spine reveals no acute fracture nor subluxation. There are some minimal degenerative changes minimal mild spondylosis evident at C-spine most notable C3/4 C2/3. Disc intact C3/4. Mild Spondylosis . Minimal disc/osteophyte features slightly indents the anterior aspect of thecal sac and may just above the anterior C4/5. Disc intact with anterior marginal osteophytes. C5-C6. Disc intact with question a small central disc protrusion. Equivocal. C6/7. No significant findings. C7/T1-T2 unremarkable. There are degenerative facet changes seen throughout the C-spine left greater than right. These are most notable on the left at C4/5 C5 C6 C2/3,.. C1-C2 relationships normal apices the lungs clear. Scattered moderate nodes throughout the neck. No large masses no obvious pathologic nodes or masses. Base of skull and limited views of the inferior brain on this C-spine study are unremarkable. A generous caliber jugular vein left more so than right mild edema and superficial soft tissues. Visualized paranasal sinuses are clear included maxillary, ethmoid and sphenoid sinuses. Mastoid air cells unremarkable. Calcification carotid bifurcations bilaterally .......IMPRESSION. Minimal degenerative changes and spondylosis C-spine, mainly evident at C 3/4. Most notable are the degenerative facet changes throughout the left aspect of the cervical spine at several levels. .. No acute findings C-spine. No fracture nor subluxation No osseous lesions nor destructive lesions visualized. No cervical masses. No significant adenopathy. Generous caliber jugular veins incidentally noted bilaterally . Aspirate reflect JVD? -Clinical correlation required
[2016-07-07 04:00] VITALS: BP 124/77
[2016-07-07 08:03] LABS: LYMPH # 2.1 K/mm3 (0.7-4.5); LYMPH % 32.4 % (10-50.0)
[2016-07-07 08:10] VITALS: BP 120/70
[2016-07-07 08:57] LABS: HEMOGLOBIN 9.9 g/dL (12.2-16.2)
[2016-07-07] MEDS ORDERED: BACTROBAN2% TP (10:47)
[2016-07-07] MEDS ORDERED: PHENERGAN12.5 M3 PO (10:47)
[2016-07-07] MEDS ORDERED: ASPIR 8181 MG PO (10:54)
[2016-07-07] MEDS ORDERED: LOPRESSOR 25MG.25 MG PO (10:54)
[2016-07-07] MEDS ORDERED: LIPITOR40 M1 PO (10:54)
[2016-07-07] MEDS ORDERED: METOCLOPRAMIDE H5 MG PO (10:54)
--- NOTE | 2016-07-07 12:58 | ACUTE CARE PROGRESS NOTE (QUA) ---
Progress Notes Subjective Date 07/07/16 Time 1244 Patient/family reports: feeling better, no complaints Nursing reports: alert Objective Findings Laboratory Tests 07/07/16 0705: Sodium 139, Potassium 3.2 L, Chloride 106, Carbon Dioxide 28, BUN 10, Creatinine 0.8, Estimated Creat Clear 84, Estimated GFR (MDRD) 73, Glucose 83, Calcium 7.5 L, Total Bilirubin 0.3, AST 14 L, ALT 9 L, Alkaline Phosphatase 121 H, Total Protein 5.2 L, Albumin 1.4 L, Globulin 3.8 H, Albumin/Globulin Ratio 0.4 L, Amylase 27, Lipase 35 L, WBC 6.0, RBC 2.67 L, Hgb 9.9 L, Hct 28.1 L, MCV 105.3 H, RDW 14.6, Plt Count 220, MPV 7.1 L, Gran % 57.7, Gran # 3.7, Lymphocytes % 32.4, Monocytes % 4.9, Eosinophils % 4.3, Basophils % 0.7, Lymphocytes # 2.1, Monocytes # 0.3, Eosinophils # 0.3, Basophils # 0.1, PUBS MCHC 36.1 H, MCH 38.1 H Vital Signs Date Time Temp Pulse Resp B/P Pulse O2 O2 Flow FiO2 Ox Delivery Rate 07/07 0810 98.7 60 18 120/70 97 ROOM AIR 07/07 0802 98.1 60 18 124/77 97 07/07 0409 18 07/07 0400 98.1 60 18 124/77 97 ROOM AIR 07/06 2339 97.9 82 18 150/74 96 ROOM AIR 07/06 2111 18 07/06 2049 98.9 62 18 111/43 96 07/06 1941 98.9 62 18 111/43 96 ROOM AIR 07/06 1900 18 07/06 1849 2 07/06 1849 92 ROOM AIR 07/06 1740 18 07/06 1700 79 18 130/64 94 ROOM AIR 07/06 1600 51 18 131/62 94 ROOM AIR 07/06 1500 55 18 111/64 94 ROOM AIR 07/06 1400 58 18 136/76 96 ROOM AIR 07/06 1348 18 02 1344 78 18 149/89 02 1342 98.3 78 18 149/89 98 ROOM AIR 07/06 1319 98.3 79 18 149/89 98 ROOM AIR 07/06 1306 98.3 79 18 138/75 96 Current Medications Promethazine HCl 0 .STK-MED ONE .ROUTE (DC) Metoclopramide HCl 0 .STK-MED ONE PO (DC) Morphine Sulfate 0 .STK-MED ONE .ROUTE (DC) Sodium Chloride 25 ML .STK-MED ONE IV (DC) Promethazine HCl 0 .STK-MED ONE .ROUTE (DC) Morphine Sulfate 0 .STK-MED ONE .ROUTE (DC) Atorvastatin Calcium 40 MG QHS PO (DCD) Lorazepam 0.5 MG BIDP PRN PO (DCD) Lorazepam 0 .STK-MED ONE .ROUTE (DC) Metoclopramide HCl 5 MG Q6HP PRN PO (DCD) Morphine Sulfate 0 .STK-MED ONE .ROUTE (DC) Metoclopramide HCl 0 .STK-MED ONE PO (DC) Promethazine HCl 0 .STK-MED ONE .ROUTE (DC) Sodium Chloride 25 ML .STK-MED ONE IV (DC) Fentanyl Citrate 25 MCG PRN PRN IV (DC) Fentanyl Citrate 50 MCG PRN PRN IV (DC) Flumazenil 0.2 MG PRN PRN IV (DC) Heparin Sodium/Sodium Chloride 3,000 UNITS PRN PRN IV (DCD) Midazolam HCl 1 MG PRN PRN IV (DC) Midazolam HCl 1 MG PRN PRN IV (DC) Naloxone HCl 0.4 MG [id number] PRN IV (DC) Nitroglycerin 800 MCG PRN PRN IV (DCD) Verapamil HCl 5 MG PRN PRN IV (DCD) Lisinopril 0 .STK-MED ONE .ROUTE (DC) Metoprolol Tartrate 0 .STK-MED ONE .ROUTE (DC) Morphine Sulfate 0 .STK-MED ONE .ROUTE (DC) Sodium Chloride 10 ML PRN PRN IV (DCD) Aspirin 81 MG DAILY PO (DCD) Promethazine HCl 12.5 MG Q6HP PRN IV (DCD) Metoprolol Tartrate 25 MG BID PO (DCD) Morphine Sulfate 2 MG Q4HP PRN IV (DCD) Influenza Virus Vaccine Quadrival 0.5 ML PRN PRN IM (DCD) Nicotine 21 MG DAILYP PRN TD (DCD) Lisinopril 20 MG DAILY PO (DCD) Last VS-Temp:98.7 B/P:120/70 Pulse:60 Resp:18 SaO2:97 ROOM AIR Last weight lbs:157 oz:2 K.271 Method:Bed Scales Exam General appearance: normal appearance, alert, active, no acute distress Eyes: normal exam, PERRLA ENT: normal exam Neck: normal inspection, full range of motion Cardiovascular: normal exam, regular rate & rhythm Respiratory: normal exam, aerating well, clear to auscultation, chest non- tender, good air movement, no respiratory distress ABD: normal exam, non-distended, normal bowel sounds, no rebound, soft, no tenderness Genitourinary: normal voiding & quantity Extremities: normal exam, moves all, warm Musculoskeletal: normal exam Skin: normal exam, intact, warm Neuro: normal exam, alert, intact, oriented Reviewed: allergies, medications, vital signs, lab results, radiology report, consult note Assessment/Plan Problem List 1. Chest pain Qualifiers: Chest pain type: unspecified Qualified Code: R07.9 - Chest pain, unspecified 2. Edema 3. Abdominal pain Patient condition Stable Plan: initiate discharge plan This inpt stay is expected to cross 2 MNs from start of care No Comments: Patient LEFT before she could get her discharge paperwork. Patient was called and notified that her prescriptions were at the pharmacy for her age and stated she didn't want any prescription. Informed patient to call Saturday for an appointment in the office. We'll refer to gastrointestinal for work up. at 1258
--- NOTE | 2016-07-07 12:59 | DISCHARGE SUMMARY STANDARD ---
See Addendum Demographics Admit date: 07/05/16 Discharge date: 07/07/16 History of present illness History of present illness 61-year-old white female presented to her family doctor's office today for a 3 day history of upper abdominal and lower chest discomfort. Patient has nausea and shortness of breath associated with it and she denies any recent increase in lower extremity edema and denies any orthopnea. Due to the symptoms and patient being new to the office she was sent to the emergency department for further evaluation. Primary care's office contacted cardiology to see the patient in the ER for further evaluation. Patient does have a history of recurrent congestive heart failure previously treated in [place]. She relates increasing exertional chest tightness and decreased exercise tolerance over the last couple of months. She denies cardiac cath in the past but states recent stress test 03/2016 in [place], [place] was ok. She does not believe she's had an echocardiogram. Electrocardiogram in the emergency department is sinus rhythm and unremarkable. Initial troponin is normal. She reports recent of RIGHT lower extremity DVT treated with Xarelto for 3 months. She has a history of bone cancer of leg diagnosed about 4 years ago. Possible multiple myeloma. Hospital Course Hospital Course: Chest pain-cardiology consult, cardiac emyzems,ekg, heart cath results-IMPRESSION: 1. Angiographically moderate to severe disease in the proximal LAD just prior to a tortuous relatively small caliber LAD. The LAD is abnormally small however it still is a large enough vessel to the stent. I doubt that this point this stenosis is producing angina and would recommend antianginal medications. 2. If patient continues to have recalcitrant angina despite maximal medical therapy we can either perform a Lexiscan Myoview to see if this lesion is ischemia producing or possibly repeat heart catheter and perform FFR. A 2.25 x 12 mm stent could easily be placed in this vessel but given her diabetes I would like to try medical management as long as possible. 3. LDL less than 70 4. I doubt this stenosis is producing a significant amount of angina at this time 5. Because of her diabetes or would recommend surveillance stress testing at a minimum of every 3 years. 6. Normal ejection fraction 7. Normal left ventricular end-diastolic pressure Patient complained of abdominal pain. CT obtained, history of gastric bypass, Edema in the lower extremities, venous Doppler obtained negative for DVT or SVT. CT of the chest was obtained ruled out a PE. Patient was inpatient she LEFT the floor told staff she would be returned. She did not return back to the floor for discharge instructions, scripts and paperwork. Patient was called to inform her they would leave her prescriptions at the pharmacy patient states she does not what any of the prescriptions. Patient to be seen this week in the office call Saturday for an appointment. Patient needs further workup with gastrointestinal, and records for history of bone cancer will follow through the office. Discharge diagnoses Problem List 1. Chest pain 2. Edema 3. Abdominal pain 4. Hx of gastric bypass Medications Medications: Discharge meds are as noted. Follow up Follow up in office in: 7 DAYS with: Tila Duran Comment: Call Saturday for an appointment at 1306
== END 2016-07-07 10:45 | disposition left against medical advice (07) ==
LOC: ER 12:01 → 2ND 15:13 → ER 15:13 → 2ND 15:16
PROVIDERS: Emergency Medicine; Internal Medicine
PROC: B2111ZZ Fluoroscopy of Multiple Coronary Arteries using Low Osmolar Contrast (ICD-10-PCS; 2016-07-06)
PROC: B2151ZZ Fluoroscopy of Left Heart using Low Osmolar Contrast (ICD-10-PCS; 2016-07-06)
PROC: 4A023N7 Measurement of Cardiac Sampling and Pressure, Left Heart, Percutaneous Approach (ICD-10-PCS; principal; 2016-07-06 07:30)
DX: I25.119 Atherosclerotic heart disease of native coronary artery with unspecified angina pectoris (principal); E11.9 Type 2 diabetes mellitus without complications; Z72.0 Tobacco use; I10 Essential (primary) hypertension; Z86.718 Personal history of other venous thrombosis and embolism
CPT/HCPCS: C1725; C1769; G0378; J1644; Q9967

== ENCOUNTER → 2016-09-27 | Outpatient (CLI) | payer MEDICAID ==
[~2016-09-27] MED LIST: AMOXICILLIN 50500 MG PO; ASPIR 8181 MG PO; BACTROBAN2% TP; LIPITOR40 M1 PO; LOPRESSOR 25MG.25 MG PO; METOCLOPRAMIDE H5 MG PO; NOMEDS XX; PHENERGAN12.5 M3 PO; RANEXA1000 M2 PO; SIMVASTATIN10 MG PO
[2016-09-27 15:59] LABS: URINE COLLECTION TIME 24 HOURS
[2016-09-27 16:00] LABS: URINE TOTAL PROTEIN CONC 237 mg/24 HR (40-90)
== END ==
LOC: LAB 12:26
PROVIDERS: Internal Medicine
DX: I25.10 Atherosclerotic heart disease of native coronary artery without angina pectoris (principal); R60.9 Edema, unspecified; E11.9 Type 2 diabetes mellitus without complications

== ENCOUNTER 2016-09-29 15:08 | Emergency (ER) | payer MEDICAID ==
[~2016-09-29] VITALS: Ht 157.5 cm; Wt 63.5 kg
[~2016-09-29 15:08] MED LIST changes: -AMOXICILLIN 50500 MG PO; -RANEXA1000 M2 PO; -SIMVASTATIN10 MG PO
--- NOTE | 2016-09-29 15:11 | Emergency Room Report ---
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 Clinical Suspician of Infection? Mental Status: Sepsis Risk: Have you (or family members/close friends) recently traveled outside the [place]? If Yes, where/when: Have you had exposure to infectious disease within the past month? TB? Other? Specify: Source patient, RN notes reviewed Exam Limitations no limitations Comment Pt comes to the ED stating she has been out of her heart medicine from Dr. Degroot for the past 3 days. She reports he increased her Ranexa to 1000 mg BID instead of 500 mg BID and she has not received a prescription yet and is upset that she does not have her medicine . She has had chest pain since last night and has been takin gAspirin and Karis seltzer but no relief and she describes a burning sensation inthe substenal area. Cardiac Chest Pain Chest pain indicative of cardiac Yes Timing/Duration 24 hours ALLERGIES Coded Allergies: ondansetron (From ZOFRAN ( HYDROCHLORIDE)) (Mild, 07/05/16) Home Medications Active Scripts MUPIROCIN 2% (Bactroban Oint) 1 RADHA TP BID #1 TUBE Prov: 07/07/16 Aspirin (Aspirin EC 81MG Tab) 81 MG PO DAILY #30 Prov: 07/07/16 Metoprolol Tartrate (Lopressor) 25 MG PO BID #30 TAB Prov: 07/07/16 Reported Medications Simvastatin 10 MG PO DAILY Ranolazine (Ranexa) 1,000 MG PO DAILY Amoxicillin Trihydrate (Amoxicillin 500MG) 500 MG PO BID History Medical History General Angina: No OK: No Hypertension? Yes Hyperlipidemia? No CHF? No COPD? No Asthma? No Hernia? No CVA? No Seizures? No Diabetes? Yes Insulin Dependent: No Home FSBS? No UTI? No Stones? No GB Disease: No Hepatitis? No Cataracts? No Glaucoma? No MRSA? No TB? No Cancer? Yes Site: BONE More? Yes Additional hx: BONE CANCER THAT HASN'T BEEN RECHECKED Immunization Hx DT/Tetanus 1-4 Years Ago Flu 2016-17FSN Pneumonia Received In Past Surgical Hx Previous Surgery? BTL, Gastric Bypass, GB and Ear surgery Social History Smoking Hx Packs/day 1 1/2 - 2 Packs Alcohol Alcohol: No Review of Systems All Other Systems Reviewed and Negative Constitutional see HPI Respiratory see HPI Cardiovascular see HPI Gastrointestinal see HPI Physical Exam Vital Signs Vital Signs Date Time Temp Pulse Resp B/P Pulse O2 O2 Flow FiO2 Ox Delivery Rate 09/29 1629 74 20 128/70 99 09/29 1554 71 20 126/73 99 09/29 1509 98.7 78 20 146/108 99 General Appearance no apparent distress Respiratory Status No: respiratory distress. Cardiovascular normal exam, regular rate/rhythm Neurologic alert, metal neutralizer II-XII nml as tested Mental status agitated Medical Decision Making LABS/Meds/Orders Pt receiving controlled substance in ED? No Results/Orders Laboratory Tests 09/29/16 1510: Amylase 16 L, Lipase 36 L 09/29/16 1510: Sodium 138, Potassium 2.8 *L, Chloride 103, Carbon Dioxide 34 H, BUN 10, Creatinine 1.2 H, Estimated Creat Clear 50, Estimated GFR (MDRD) 46 L, Glucose 82, Calcium 7.7 L, Total Bilirubin 0.4, AST 18, ALT 15, Alkaline Phosphatase 125 H, Creatine Kinase 43, CK-MB (CK-2) Rel Index 2.1, CK and CKMB Interp 0.9, Troponin I 0.02, Total Protein 6.0 L, Albumin 1.6 L, Globulin 4.4 H, Albumin/ Globulin Ratio 0.4 L, WBC 6.0, RBC 2.75 L, Hgb 9.3 L, Hct 29.4 L, MCV 106.8 H, RDW 16.0, Plt Count 215, MPV 6.4 L, Gran % 65.1, Gran # 3.9, Lymphocytes % 27.7, Monocytes % 4.1, Eosinophils % 2.6, Basophils % 0.5, Lymphocytes # 1.7, Monocytes # 0.3, Eosinophils # 0.2, Basophils # 0.0, PUBS MCHC 31.6 L, MCH 33.7 H Current Medication Orders Sig/Colton Start time Last Medication Dose Route Stop Time Status Admin Multi-Ingredient GI 60 ML ONCE ONE 09/29 1600 DC 09/29 Drug PO 09/29 1601 1552 Multi-Ingredient GI 60 ML ONCE ONE 09/29 1600 DC Drug PO 09/29 1601 Ranolazine 0 .STK-MED ONE 09/29 1546 DC PO Aspirin 324 MG ONCE ONE 09/29 1545 DC PO 09/29 1546 Nitroglycerin 0.4 MG [id number] PRN 09/29 1545 AC SL Pantoprazole Sodium 40 MG ONCE ONE 09/29 1545 DC 09/29 IV 09/29 1546 1549 Ranolazine 1,000 MG ONCE ONE 09/29 1545 DC 09/29 PO 09/29 1546 1552 Sodium Chloride 10 ML PRN PRN 09/29 1545 AC IV 09/30 1531 Sodium Chloride 10 ML ONCE ONE 09/29 1545 DC 09/29 IV 09/29 1546 1552 Pantoprazole Sodium 0 .STK-MED ONE 09/29 1544 DC IV Multi-Ingredient GI 0 .STK-MED ONE 09/29 1543 DC Drug PO Orders Procedure Date/time Status LIPASE 09/29 1539 Complete AMYLASE 09/29 1539 Complete ELECTROCARDIOGRAM REQUEST 09/29 1532 Active CHEST(2 VIEWS-NOT PORTABLE) 09/29 1532 Active IV SALINE LOCK 09/29 1532 Active 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 Degroot or Tila on Saturday. return to the ED as needed. Discharge Counseling Counseled pt/family regarding diagnosis, test results, medications/RX, home care, follow up needs ED Critical Care Critical Care No If Critical Care minutes are documented, the time involved in the performance of seperately reportable procedures was not counted toward critical care time documented. I directly delivered medical care to this critically ill and/or injured patient. Timely evaluation and treatment was necessary to address the significant organ system(s) dysfunction present in this patient. at 1730
[2016-09-29] MEDS ORDERED: SIMVASTATIN10 MG PO (15:21)
[2016-09-29] MEDS ORDERED: RANEXA1000 M2 PO (15:33)
[2016-09-29] MEDS ORDERED: AMOXICILLIN 50500 MG PO (15:34)
--- OUTSIDE RECORDS SUMMARY | 2016-09-29 15:37 | External Medical Summary Rpt ---
Author Author [employer] Organization [employer] Address Unknown Phone Unavailable Purpose Continuity of Care Document - through 2016
--- OUTSIDE RECORDS SUMMARY | 2016-09-29 15:37 | External Medical Summary Rpt ---
Demographics Preferred Language Telugu Marital Status Unknown Taoism Affiliation Unknown Race Unknown Ethnic Group Unknown Author Author , Organization [employer] Address Unknown Phone Unavailable Purpose Continuity of Care Document - through 2016 Immunization No patient found.
--- OUTSIDE RECORDS SUMMARY | 2016-09-29 15:37 | External Medical Summary Rpt ---
Demographics Preferred Language Faroese Marital Status Unknown Evangelical Affiliation Unknown Race Unknown Ethnic Group Unknown Author Author , Organization [employer] Address Unknown Phone Unavailable Purpose Continuity of Care Document - through 2016 Immunization No patient found.
[2016-09-29 15:51] LABS: HEMOGLOBIN 9.3 g/dL (12.2-16.2); LYMPH # 1.7 K/mm3 (0.7-4.5); LYMPH % 27.7 % (10-50.0)
[2016-09-29 17:50] VITALS: BP 128/70
--- NOTE | 2016-09-29 20:25 | RADIOLOGY REPORT PS360 ---
CHEST(2 VIEWS-NOT PORTABLE) COMPARISON: PA and lateral chest 07/05/2016 HISTORY: Chest pain TECHNIQUE: PA and lateral chest FINDINGS: The lung li are well expanded. There is a subtle ill-defined opacity at the left base not seen previously which has the appearance of post inflammatory scarring. Otherwise lung li are clear. There are small calcified hilar nodes bilaterally. There are calcified granulomata left lower lobe. Cardiac size is normal and the vascularity is normal. There is no pleural fluid. There are moderate degenerative changes in both shoulders but much more prominent right than left with a high riding humeral head and marked subacromial stenosis. IMPRESSION: 1. Probable post inflammatory scarring left base. 2. Prominent degenerative changes of both shoulders
[2016-10-09] MEDS ORDERED: GABAPENTIN100 MG PO (19:15)
[2016-10-09] MEDS ORDERED: BUSPAR 5MG TAB5 MG PO (19:15)
[2016-10-09] MEDS ORDERED: CYMBALTA60 M1 PO (19:16)
[2016-10-09] MEDS ORDERED: BISOPROLOL 5MG T5 MG PO (19:16)
[2016-10-10] MEDS ORDERED: ATORVASTATIN CA20 M1 PO (07:33)
== END 2016-09-29 17:50 | disposition home or self-care (01) ==
LOC: ER 15:08
PROVIDERS: General Practice
DX: R07.89 Other chest pain (principal); I10 Essential (primary) hypertension; E11.9 Type 2 diabetes mellitus without complications